=== PATIENT | male | born 1975 | race African-American/Black ===

== ENCOUNTER 2020-04-22 07:54 | Emergency (ER) | payer BC, OTHER ==
--- NOTE | 2020-04-22 07:59 | PDOC ---
History of Present Illness - General Chief Complaint: Blood Sugar Problem Stated Complaint: ELEVATED BLOOD GLUCOSE NON COMPLIANT WITH METFORM Time Seen by Provider: 04/22/20 07:58 - History of Present Illness Initial Comments: 04/22/20 10:21 Pt presents to the ED complaining of elevated blood sugar. Denies other complaints. Does report that he has recently been eating foods that he is "not supposed" to eat and exercising less. He denies chest pain, shortness of breath, nausea, vomiting or abdominal pain. Denies fever. Past History - Medical History Allergies/Adverse Reactions: Allergies Allergy/AdvReac Type Severity Reaction Status Date / Time No Known Allergies Allergy Unverified 04/22/20 07:57 Home Medications: Ambulatory Orders Metformin HCl [Glucophage] 1 tab PO BID 04/22/20 Review of Systems - Review of Systems Able to Perform ROS?: Yes Is the patient limited Khmer proficient: No Constitutional: No: Symptoms Reported, See HPI, Chills, Diaphoresis, Fever, Loss of Appetite, Malaise, Night Sweats, Weakness, Weight Stable, Unintentional Wgt. Loss, Unexplained wgt Loss, Other HEENTM: No: Symptoms Reported, See HPI, Eye Pain, Blurred Vision, Tearing, Rec ent change in vision, Double Vision, Cataracts, Ear Pain, Ocular Prothesis, Ear Discharge, Nose Pain, Nose Congestion, Tinnitus, Nose Bleeding, Hearing Loss, Throat Pain, Throat Swelling, Mouth Pain, Dental Problems, Difficulty Swallowing, Mouth Swelling, Other Respiratory: No: Symptoms reported, See HPI, Cough, Orthopnea, Shortness of Breath, SOB with Exertion, SOB at Rest, Stridor, Wheezing, Productive cough, Hemoptysis, Other Cardiac (ROS): No: Symptoms Reported, See HPI, Chest Pain, Edema, Irregular Heart Rate, Lightheadedness, Palpitations, Syncope, Chest Tightness, Other ABD/GI: No: Symptoms Reported, See HPI, Abdominal Distended, Abd. Pain w/ defecation, Blood Streaked Bowels, Constipated, Diarrhea, Difficulty Swallowing, Nausea, Poor Appetite, Poor Fluid Intake, Rectal Bleeding, Vomiting, Indigestion, Abdominal cramping, Tarry Stools, Other : No: Symptoms Reported, See HPI, Burning, Dysuria, Discharge, Frequency, Flank Pain, Hematuria, Incontinence, Pain, Urgency, Testicular Mass, Testicular Swelling, Lesions, Testicular Pain, Other Musculoskeletal: No: Symptoms Reported, See HPI, Back Pain, Gout, Joint Pain, Joint Swelling, Muscle Pain, Muscle Weakness, Neck Pain, Joint Stiffness, Other *Physical Exam - Physical Exam 04/22/20 10:38 gen: alert, NAD HEENT: normocephalic, atraumatic CV: rrr no m/r/g Pulm: CTA b/l Abdomen: soft, non tender, non distended, no guarding or rebound ED Treatment Course - LABORATORY CBC & Chemistry Diagram: 04/22/20 08:48 04/22/20 08:48 Medical Decision Making - Medical Decision Making 04/22/20 10:40 Pt presents to the ED complaining of hyperglycemia, without sympyoms. Labs show glucose of >400. will treat with IV hydration, discharge home when FS <400. 04/22/20 11:26 Discharge - Discharge Information Problems reviewed: Yes Clinical Impression/Diagnosis: Hyperglycemia Condition: Good Disposition: HOME - Admission No - Follow up/Referral Referrals: Veronica Adler MD [Primary Care Provider] - - Patient Discharge Instructions Patient Printed Discharge Instructions: DI for Hyperglycemia -- Adult Additional Instructions: you came to the ED because your sugar was high. We treated you with IV fluids in the ED, but you should continue to drink water and watch what you eat at home. Call your doctor tomorrow to arrange a follow up appointment within the next two days. Return to the ED for lightheadness, severe nausea or vomiting, abdominal pain, excessive urination or thirst, fingerstick >500 at home. - Post Discharge Activity
[2020-04-22 08:13] VITALS: BMI 35.4
--- OUTSIDE RECORDS SUMMARY | 2020-04-22 08:19 | XMS ---
:1975 Author Organization [facility] Care Team Providers Name Role Phone EMERGENCY SERVICE, X Unavailable Unavailable PASCUAL SHELTON Unavailable Unavailable JUAN PABLO CRAFT Unavailable Unavailable Re-disclosure Warning The records that you are about to access may contain information from federally- assisted alcohol or drug abuse programs. If such information is present, then the following federally mandated warning applies: This information has been disclosed to you from records protected by federal confidentiality rules (42 CFR part 2). The federal rules prohibit you from making any further disclosure of this information unless further disclosure is expressly permitted by the written consent of the person to whom it pertains or as otherwise permitted by 42 CFR part 2. A general authorization for the release of medical or other information is NOT sufficient for this purpose. The Federal rules restrict any use of the information to criminally investigate or prosecute any alcohol or drug abuse patient.The records that you are about to access may contain highly sensitive health information, the redisclosure of which is protected by Article 27-F of the [facility] Public Health law. If you continue you may haveaccess to information: Regarding HIV / AIDS; Provided by facilities licensed or operated by the [facility] Office of Mental Health; or Provided by the [facility] Office for People With Developmental Disabilities. If such information is present, then the following [facility] mandated warning applies: This information has been disclosed to you from confidential records which are protected by state law. State law prohibits you from making any further disclosure of this information without the specific written consent of the person to whom it pertains, or as otherwise permitted by law. Any unauthorized further disclosure in violation of state law may result in a fine or correction sentence or both. A general authorization for the release of medical or other information is NOT sufficient authorization for further disclosure. Encounters Encounter Providers Location Date Indications Data Source(s ) Outpatient Attender: LUANA, 12/12/2019 Z01.84 [facility] JUAN PABLO BeachAdmitter: 11:45:00 AM Health Care JUAN PABLO CRAFT EDT Corporatio n E.Referrer: JUAN PABLO CRAFT [place] Z.84 Emergency Attender: CAT, 10/24/2019 [facility] OF [place] [facility] SCOTTAttender: 10:49:00 AM EDT [facility] EMERGENCY SERVICE, Corpor ation XAdmitter: CAT PASCUAL SHORTNESS OF BREATH Medications Medication Brand Start Product Dose Route Administrative Pharmacy [facility] Indications Reaction Description Data Name Date Form Instructions Instructions Source(s) MetFORMIN UNK complet MetFORMIN [place] HCl 500 MG 2017 MG ed HCl 500 MG r C ounty Oral Tabl 08:07: Oral Tablet H ealth 17 PM TAKE 1 Care EDT TABLET TWICE Corpora denise DAILY. n Dispense: 14 MetFORMIN UNK complet MetFORMIN [place] HCl 500 MG 2017 MG ed HCl 500 MG r C ounty Oral Tabl 08:07: Oral Tablet H ealth 17 PM TAKE 1 Care EDT TABLET TWICE Corpora denise DAILY. n Dispense: 14 Not Taking Not 999 UNK complet Not Taking [place] Home Meds Taking MG ed Home Meds r C ounty Home Health Meds Care Corporatio n Not Taking Not 999 UNK complet Not Taking [place] Home Meds Taking MG ed Home Meds r C ounty Home Health Meds Care Corporatio n Insurance Providers Payer name Policy type / Policy ID Covered Covered republican's Policy Plan Coverage type republican ID relationship to Lutz Information lutz BC EPO [id number] SP [id number] UNK UNK UNK UNK UNK UNK Problems, Conditions, and Diagnoses Code Display Name Description Problem Type Effective Dates Data Source(s) Z Encounter for ENCOUNTER FOR Diagnosis 12/12/2019 [facility] antibody response ANTIBODY RESPONSE 11:45:00 AM EDT [facility] examination EXAMINATION Care Corpora tion R09.81 Nasal congestion NASAL CONGESTION Diagnosis 10/24/[place] 10:[place]:[facility] R73.03 Prediabetes PREDIABETES Diagnosis 10/24/2019 [place] 10:49:[address] [facility] alth Care Corporati on R50.9 Fever, FEVER, Diagnosis 10/24/2019 [place] unspecified UNSPECIFIED 10:49:00 AM [facility] Care Corporati on B97.29 Other coronavirus OTH CORONAVIRUS Diagnosis [facility]/2019 [facility] of THE CAUSE OF 10:49:00 AM [facility] diseases DISEASES CLASSD Care Naheed oration classified [id number] elsewhere R05 Cough COUGH Diagnosis 10/24/2019 [place] 10:49:[address] [facility] alth Care Corporati on R07.9 Chest pain, CHEST PAIN, Diagnosis 10/24/2019 [place] unspecified UNSPECIFIED 10:49:00 AM [facility] Care Corporati on Results ID Date Data Source [id number] 11/29/2019 05:37:00 PM EDT [facility] Name Value Range Interpretation Code Description Data Ting rce(s) Supporting Document(s ) SARS-CoV-2 [facility] , RNA This lab was ordered by MATTY BUTLER M.D. and reported by [facility]. ID Date Data Source [id number] 11/08/2019 04:35:00 PM EDT [facility] Name Value Range Interpretation Code Description Data Ting rce(s) Supporting Document(s ) SARS-COV-2 [facility] This lab was ordered by [facility] and reported by [email or web address]. ID Date Data Source [id number] 10/24/2019 12:00:00 AM EDT [facility] Name Value Range Interpretation Code Description Data Ting rce(s) Supporting Document(s ) 2019-nCoV [facility] RNA XXX ONESIMO+probe- Imp This lab was ordered by [facility] and reported by [employer]. Procedure
[2020-04-22 09:00] LABS: BASO % 3.8 % (0-2.0); EOS % 1.8 % (0-4.5); HEMATOCRIT 46.9 % (35.4-49); HEMOGLOBIN 15.7 GM/dl (11.7-16.9); LYMPH % 35.9 % (8-40); MCH 29.6 pg (25.7-33.7); MCHC 33.5 g/dl (32.0-35.9); MEAN CELL VOLUME 88.4 fl (80-96); MEAN PLT VOLUME 8.1 fl (7.5-11.1); MONO % 9.4 % (3.8-10.2); NEUT % 49.1 % (42.8-82.8); PLATELET COUNT 325 K/MM3 (134-434); RBC 5.31 M/mm3 (4.00-5.60); RDW 11.6 % (11.9-15.9); WHITE BLOOD COUNT 4.7 K/mm3 (4.0-10.8)
[2020-04-22 09:13] LABS: ALBUMIN 4.2 g/dl (3.4-5.0); BILIRUBIN,TOTAL 0.9 mg/dl (0.2-1); CALCIUM 9.2 mg/dl (8.5-10); CREATININE 1.1 mg/dl (0.55-1.3); POTASSIUM 4.3 mmol/L (3.5-5.1); TOT PROT 7.5 g/dl (6.4-8.2)
[2020-04-22] MEDS ORDERED: SODIUM CHLORIDE 0.9% 500 ML INFUS.BAG IV ONE ×2 (09:33→10:14)
[2020-04-22 11:30] VITALS: BP 129/83; PULSE 79; TEMP 98.1
== END 2020-04-22 11:38 | disposition home or self-care (01) ==
LOC: FER 07:54
DX: R73.9 Hyperglycemia, unspecified (principal)
CPT/HCPCS: 36415; 80053; 82962; 85025; 99283-25

== ENCOUNTER 2021-06-27 15:06 | Emergency (ER) | payer OTHER ==
[2021-06-27 15:48] VITALS: BP 127/78; PULSE 86; TEMP 98.3; BMI 34.7
[2021-06-27 17:03] LABS: BASO % 0.9 % (0-2.0); EOS % 1.8 % (0-4.5); HEMATOCRIT 42.3 % (35.4-49); HEMOGLOBIN 14.1 GM/dL (11.7-16.9); LYMPH % 39.4 % (8-40); MCH 28.7 pg (25.7-33.7); MCHC 33.2 g/dl (32.0-35.9); MEAN CELL VOLUME 86.4 fl (80-96); MEAN PLT VOLUME 7.5 fl (7.5-11.1); MONO % 9.7 % (3.8-10.2); NEUT % 48.2 % (42.8-82.8); PLATELET COUNT 345 10^3/uL (134-434); RDW 13.3 % (11.9-15.9); WHITE BLOOD COUNT 4.9 K/mm3 (4.0-10.0)
[2021-06-27 17:12] LABS: PH,URINE 8.5 (5.0-8.0); URINE APPEARANCE CLEAR; URINE BILIRUBIN NEGATIVE (NEGATIVE); URINE COLOR YELLOW; URINE GLUCOSE (UA) NEGATIVE (NEGATIVE); URINE KETONE NEGATIVE (NEGATIVE); URINE LEUK ESTERASE NEGATIVE (NEGATIVE); URINE NITRITE NEGATIVE (NEGATIVE); URINE PROTEIN TRACE (NEGATIVE)
[2021-06-27 17:18] LABS: PROTHROMBIN TIME (PATIENT) 11.7 SEC (9.7-13.0)
[2021-06-27 17:21] LABS: ACTIVATED PTT 32.6 SECONDS (25.2-36.5)
[2021-06-27 17:42] LABS: BLOOD UREA NITROGEN 14.8 mg/dL (7-18); CREATININE 1.1 mg/dL (0.55-1.3)
[2021-06-27 17:43] LABS: ALBUMIN 3.8 g/dl (3.4-5.0); BILIRUBIN,TOTAL 0.3 mg/dL (0.2-1); CALCIUM 9.5 mg/dL (8.5-10.1); TOT PROT 7.3 g/dl (6.4-8.2)
== END 2021-06-27 18:00 | disposition home or self-care (01) ==
LOC: JER 15:06
DX: K62.5 Hemorrhage of anus and rectum (principal)
CPT/HCPCS: 36415; 80053; 81003; 82272; 85025; 85610; 85730; 87086; 99283-25

== ENCOUNTER 2024-03-06 04:28 | Day surgery (SDC) | payer OTHER ==
[2024-03-03 12:31] VITALS: BMI 34.7
[2024-03-06] MEDS ORDERED: ONDANSETRON 4 MG/2 ML VIAL ONE (15:57)
[2024-03-06] MEDS ORDERED: MIDAZOLAM HCL 2 MG/2 ML SINGLE DOSE VIAL ONE (16:17)
[2024-03-06 18:00] VITALS: RESP 18
[2024-03-06 18:02] VITALS: BP 138/85; PULSE 83; TEMP 98
== END 2024-03-06 17:30 | disposition home or self-care (01) ==
LOC: JASU-SURG 04:28
PROVIDERS: ATTEND Urology
PROC: 0TF3XZZ Fragmentation in Right Kidney Pelvis, External Approach (ICD-10-PCS; principal; 2024-03-06 16:30)
DX: N20.0 Calculus of kidney (principal)
CPT/HCPCS: 82962